=== PATIENT | female | born 1930 | race Caucasian/White ===

== ENCOUNTER → 2017-05-25 | Outpatient (CLI) | payer MEDICARE ==
[2017-05-25 09:34] LABS: MEAN CORPUSCULAR HEMOGLOBIN 32.6 pg (27.0-33.0); MEAN CORPUSCULAR HGB CONC 32.4 g/dl (32.0-36.5); MEAN CORPUSCULAR VOLUME 100.5 fl (80.0-96.0); PLATELET COUNT, AUTOMATED 460 10^3/uL (150-450); RED CELL DISTRIBUTION WIDTH 13.2 % (11.5-14.5)
--- NOTE | 2017-05-25 09:59 | REP ---
CHEST, TWO VIEWS: Two views of the chest are performed. Comparison 03/12/2009. There is hyperinflation and underlying scattered interstitial fibrotic change. There is superimposed infiltrate in the left lung base with a small left pleural effusion. There is mild infiltrate in the right lung base. The heart is not enlarged. There is calcification of the thoracic aorta. The mediastinal silhouette is otherwise unremarkable. There are degenerative changes of the spine. IMPRESSION: Patchy infiltrate left lung base with adjacent left pleural effusion. Mild infiltrate right lung base. Signed by Silverio Hartley MD 05/25/2017 05:22 P
[2017-05-25 10:04] LABS: ALBUMIN/GLOBULIN RATIO 0.86 (1.00-1.93); ALKALINE PHOSPHATASE 126 U/L (45-117); ALT/SGPT 17 U/L (12-78); ANION GAP 6 MEQ/L (8-16); AST/SGOT 26 U/L (7-37); BILIRUBIN,TOTAL 0.5 MG/DL (0.2-1.0); BLOOD UREA NITROGEN 18 MG/DL (7-18); CALCIUM LEVEL 10.5 MG/DL (8.8-10.2); CARBON DIOXIDE LEVEL 36 MEQ/L (21-32); CHLORIDE LEVEL 97 MEQ/L (98-107); CREATININE FOR GFR 0.84 MG/DL (0.55-1.02); GLOMERULAR FILTRATION RATE > 60.0 (>32); GLUCOSE, FASTING 106 MG/DL (83-110); POTASSIUM SERUM 4.9 MEQ/L (3.5-5.1); SODIUM LEVEL 139 MEQ/L (136-145); TOTAL PROTEIN 6.5 GM/DL (6.4-8.2)
== END ==
LOC: M LAB 09:00
PROVIDERS: ATTEND Family Medicine
DX: D64.9 Anemia, unspecified (principal); R53.83 Other fatigue

== ENCOUNTER → 2017-06-10 | Outpatient (CLI) | payer MEDICARE | LOC: M RAD 09:33 | DX: J18.9 Pneumonia, unspecified organism (principal) | CPT/HCPCS: 71046 ==

== ENCOUNTER → 2018-03-07 | Outpatient (REF) | payer MEDICARE ==
[2018-03-07 13:33] LABS: THYROID STIMULATING HORMONE 0.463 uIU/ML (0.358-3.740)
[2018-03-07 13:33] LABS: THYROXINE (T4) 9.3 UG/DL (4.5-12.0)
== END ==
LOC: M LABDRAW1 12:29
DX: E03.9 Hypothyroidism, unspecified (principal)
CPT/HCPCS: 84443

== ENCOUNTER → 2018-09-08 | Outpatient (REF) | payer MEDICARE | LOC: M LAB LCGH 10:31 | PROVIDERS: ATTEND Physician Assistant | DX: C44.722 Squamous cell carcinoma of skin of right lower limb, including hip (principal) ==

== ENCOUNTER 2019-02-05 11:19 | Observation (INO) | payer MEDICARE ==
[~2019-02-05] VITALS: Ht 160 cm; Wt 36.3 kg
[2019-02-05] MEDS ORDERED: LIDOCAINE 2% 5ML JELLY UROJET TOP ONE (11:30)
[2019-02-05] MEDS ORDERED: NS 500 ML IV ONE (11:30)
--- NOTE | 2019-02-05 11:54 | REP ---
Clinical: Altered mental status. Comparison: 06/10/2017. Findings: Mediastinum, cardiac silhouette, and lung miller demonstrate chronic stable changes. Subtle superimposed process cannot definitively be excluded. No definite effusion. No pneumothorax. Skeletal structures demonstrate osteopenia and degenerative change. Impression: Chronic stable changes. Cannot exclude subtle superimposed acute process. Electronically Signed by Gavin Boland MD 02/05/2019 11:45 A
[2019-02-05] MEDS ORDERED: IPRATROPIUM 0.5MG/ALBUTEROL 2.5MG INH SOL UD 3ML (DUONEB)(J7620) NEB ONE (12:00)
[2019-02-05] MEDS ORDERED: methylPREDNISolone INJ 125 MG/2 ML VIAL (J2930) IV ONE (12:00)
[2019-02-05] MEDS ORDERED: ALBUTEROL SULFATE 2.5 MG/0.5 ML INH NEB SOLN INH ONE (12:00)
[2019-02-05] MEDS ORDERED: NS 1,000 ML IV ONE ×2 (12:15→12:45)
[2019-02-05] MEDS ORDERED: LevoFLOXacin IV 750 MG in IV 1 EA IV ONE (12:15)
--- NOTE | 2019-02-05 12:17 | REP ---
Clinical: Altered mental status. Comparison: 11/01/2014. Findings: Age-related atrophy and microvascular ischemic changes are appreciated. The ventricles and sulci are symmetric. Hartley-white differentiation is maintained. There is no evidence for acute intracranial hemorrhage, mass/mass effect, pathology or infarction. No extra-axial fluid collection. Calvarium is intact. Paranasal sinuses and mastoid air cells are clear. Impression: Age related atrophy and microvascular ischemic changes. No acute intracranial hemorrhage, infarction, or mass/mass effect. Electronically Signed by Gavin Boland MD 02/05/2019 12:09 P
[2019-02-05 12:36] LABS: BASO # 0.1 10^3/uL (0.0-0.2); BASO % 0.4 % (0.0-1.0); HEMATOCRIT 42.1 % (36.0-47.0); HEMOGLOBIN 13.1 g/dl (12.0-15.5); LYMPH # 0.6 10^3/uL (1.5-5.0); LYMPH % 4.9 % (24.0-44.0); MEAN CORPUSCULAR HEMOGLOBIN 33.2 pg (27.0-33.0); MEAN CORPUSCULAR HGB CONC 31.1 g/dl (32.0-36.5); MEAN CORPUSCULAR VOLUME 106.9 fl (80.0-96.0); MONO # 0.9 10^3/uL (0.0-0.8); MONO % 7.6 % (0.0-5.0); NEUTROPHILS # 9.8 10^3/uL (1.5-8.5); NEUTROPHILS % 86.3 % (36.0-66.0); PLATELET COUNT, AUTOMATED 322 10^3/uL (150-450); RED BLOOD COUNT 3.94 10^6/uL (4.00-5.40); WHITE BLOOD COUNT 11.3 10^3/uL (4.0-10.0)
[2019-02-05 13:09] LABS: ACETAMINOPHEN LEVEL < 2.0 UG/ML (10.0-30.0); ALBUMIN 3.1 GM/DL (3.2-5.2); ALT/SGPT 37 U/L (12-78); BILIRUBIN,DIRECT 0.5 MG/DL (0.0-0.2); BILIRUBIN,TOTAL 1.1 MG/DL (0.2-1.0); BLOOD UREA NITROGEN 31 MG/DL (7-18); CARBON DIOXIDE LEVEL 34 MEQ/L (21-32); CHLORIDE LEVEL 97 MEQ/L (98-107); CK-MB VALUE MASS 2.8 NG/ML (<3.6); CPK CREATINE PHOSPHOKINASE 72 U/L (26-192); CREATININE FOR GFR 1.21 MG/DL (0.55-1.30); ETHYL ALCOHOL (ETHANOL) < 0.003 % (0.000-0.010); GLOMERULAR FILTRATION RATE 44.7 (>32); GLUCOSE, FASTING 133 MG/DL (70-100); MB/CK RELATIVE INDEX 3.89 (< OR =4); POTASSIUM SERUM 5.8 MEQ/L (3.5-5.1); SALICYLATE LEVEL 2.4 MG/DL (5.0-30.0); SODIUM LEVEL 138 MEQ/L (136-145); TOTAL PROTEIN 6.7 GM/DL (6.4-8.2)
[2019-02-05] MEDS ORDERED: VANCOMYCIN HCL 1,000 MG, VIAL MATE ADAPTER 1 EACH in D5W 250 ML IV SCH (14:15)
[2019-02-05] MEDS ORDERED: IPRATROPIUM 0.5MG/ALBUTEROL 2.5MG INH SOL UD 3ML (DUONEB)(J7620) INH PRN (14:15)
[2019-02-05] MEDS ORDERED: ALBUTEROL SULFATE 2.5 MG/0.5 ML INH NEB SOLN INH PRN (14:15)
--- NOTE | 2019-02-05 14:32 | ECGEPIP ---
[facility] - ED Test Date: 2019-02-05 Pat Name: ZACKARY GILBERT Department: Room: - Gender: Female [employer] Cleaning Hand: MARCOS : 1930 Requested By: Rima Gates Order Number: [id number] Reading MD: Rima Gates Measurements Intervals [place] Rate: 125 P: CO: 0 QRS: -79 QRSD: 129 T: 75 QT: 301 QTc: 435 Interpretive Statements ATRIAL FLUTTER/TACHYCARDIA WITH RAPID VENTRICULAR RESPONSE RIGHT BUNDLE BRANCH BLOCK LEFT ANTERIOR FASCICULAR BLOCK LAD NONSPECIFIC ST T WAVE CHANGES CW 11/01/14 RATE INCREASED RHYTHM CHANGE NONSPECIFIC ST T WAVE CHANGES Electronically Signed on 02-05-2019 14:32:20 EDT by Rima Gates
[2019-02-05 14:37] LABS: AMPHETAMINES LEVEL URINE NEGATIVE (NEGATIVE); BARBITURATES URINE NEGATIVE (NEGATIVE); BENZODIAZEPINES URINE NEGATIVE (NEGATIVE); CANNABINOIDS URINE NEGATIVE (NEGATIVE); COCAINE METABOLITE URINE NEGATIVE (NEGATIVE); METHADONE URINE NEGATIVE (NEGATIVE); OPIATES URINE NEGATIVE (NEGATIVE); PHENCYCLIDINE URINE NEGATIVE (NEGATIVE)
--- NOTE | 2019-02-05 14:47 | HPEPDOC ---
General Date of Admission 02/05/19 Date of Service: Feb 05, 2019 Attending Physician: LUPE MARTINEZ DO Chief Complaint The patient is a 88-year-old female admitted with a reason for visit of ams. Source: Family Exam Limitations: Clinical conditions Timing/Duration: 24 hours Severity: Severe Associated Symptoms: Malaise, Shortness of breath, Weakness History of Present Illness Patient is 88 years old female with past medical history of colon cancer status post resection, COPD was active smoker, macrocytic anemia presented to the hospital with acute hypoxemic hypercapnic respiratory failure. According to the family who physically present in the room, for past month patient became progressively weak, lost appetite, shortness of breath gradually became worse as well. Today in the morning patient developed severe shortness of breath associated with altered mental status. Of note, the daughter stated that patient had problem with swallowing before. In Emergency room patient was found to have severe respiratory distress, arterial blood gas showed pH of 7.1, CO2 level 115.9. Patient was placed on nonrebreather mask. Family didn't want BiPAP or any interventional aggressive procedure. The CODE STATUS has been changed for DNR/DNI. Chest x-ray cannot exclude subtle superimposed acute process. White blood count of 11.3, lactic acid of 2.8. Home Medications No Active Prescriptions or Reported Meds Allergies Coded Allergies: Penicillins (Verified Allergy, Intermediate, 02/05/19) rash Sulfa (Sulfonamide Antibiotics) (Verified Allergy, Intermediate, 02/05/19) rash erythromycin base (Verified Allergy, Intermediate, 02/05/19) rash Past Medical History Medical History Colon cancer, COPD, nicotine abuse Surgical History Colon resection secondary to colon cancer Family History Father from colon cancer Social History * Smoker: current smoker Alcohol: occationally Drugs: denies Psychosocial History: No pertinent psych hx A-FIB/CHADSVASC A-FIB History Current/History of A-Fib/PAF?: No Current PO Anticoag Therapy: No Review of Systems Constitutional: Reports: Chills, Fatigue, Weight Loss, Lethargy Eyes: Denies: Pain, Vision change ENT: Denies: Head Aches, Ear Pain Skin: Denies: Rash, Lesions Pulmonary: Reports: Dyspnea, Cough Cardiovascular: Denies: Chest Pain, Palpitations, Orthopnea Gastrointestinal: Denies: Nausea, Vomiting, Abdominal Pain Genitourinary: Denies: Dysuria, Frequency Hematologic: Denies: Bruising, Bleeding Excessively Endocrine: Denies: Polydipsia Musculoskeletal: Denies: Neck Pain, Back Pain Neurological: Denies: Weakness, Numbness Physical Examination General Exam: Positive: Severe Distress Eye Exam: Positive: PERRLA, EOMI ENT Exam: Positive: Atraumatic Neck Exam: Positive: Supple; Negative: JVD, thyromegaly Chest Exam: Positive: Rhonchi, Diminished Heart Exam: Positive: Tachycardic Telemetry: Positive: Tachycardia Abdomen Exam: Positive: BS Hypoactive Extremity Exam: Negative: Clubbing, Cyanosis Skin Exam: Negative: Rash Neuro Exam: Positive: Other (unable to perform neurological exam due to severe respiratory distress) Vital Signs Vital Signs Date Time Temp Pulse Resp B/P (MAP) Pulse Ox O2 Delivery O2 Flow Rate FiO2 02/05/19 13:43 NIPPV (BIPAP/CPAP) 02/05/19 13:34 118 16 86 02/05/19 13:30 195/93 (127) 02/05/19 12:49 15.0 02/05/19 12:05 70 02/05/19 11:32 99.8 Laboratory Data Labs 24H Laboratory Tests 2 02/05/19 11:40: POC pH (Misc Panel) 7.138*L, POC Base Excess (Misc Panel) 10.0H, POC Saturated Percent O2 (Misc) 100H, POC pO2 (Misc Panel) 337.0H, POC pCO2 (Misc Panel) 115.9*H, POC HCO3 (Misc Panel) 39.3H, POC Total CO2 (Misc Panel) 43.0H 02/05/19 12:11: POC Total CO2 (Misc Panel) 39.0H, POC Glucose (Misc Panel) 136H, POC Sodium (Misc Panel) 135L, POC Potassium (Misc Panel) 5.5H, POC Chloride (Misc Panel) 96L, POC Blood Urea Nitrogen (Misc Panel 42H, POC Ionized Calcium (Misc Panel) 5.1, POC Creatinine (Misc Panel) 1.2, POC Hematocrit (Misc Panel) 43.0, Lactic Acid Level 2.8*H 02/05/19 12:13: Immature Granulocyte % (Auto) 0.8, White Blood Count 11.3H, Red Blood Count 3.94L, Hemoglobin 13.1, Hematocrit 42.1, Mean Corpuscular Volume 106.9H, Mean Corpuscular Hemoglobin 33.2H, Mean Corpuscular Hemoglobin Concent 31.1L, Red Cell Distribution Width 14.0, Platelet Count 322, Neutrophils (%) (Auto) 86.3H, Lymphocytes (%) (Auto) 4.9L, Monocytes (%) (Auto) 7.6H, Eosinophils (%) (Auto) 0.0, Basophils (%) (Auto) 0.4, Neutrophils # (Auto) 9.8H, Lymphocytes # (Auto) 0.6L, Monocytes # (Auto) 0.9H, Eosinophils # (Auto) 0.0, Basophils # (Auto) 0.1, Nucleated Red Blood Cells % (auto) 0.0, Anion Gap 7L, Glomerular Filtration Rate 44.7, Calcium Level 10.0, Aspartate Amino Transf (AST/SGOT) 91H, Alanine Aminotransferase (ALT/SGPT) 37, Alkaline Phosphatase 167H, Total Bilirubin 1.1H, Direct Bilirubin 0.5H, Ammonia 18, Total Creatine Kinase 72, Creatine Kinase MB 2.8, Creatine Kinase MB Relative Index 3.89, Troponin I 0.10, Total Protein 6.7, Albumin 3.1L, Albumin/Globulin Ratio 0.86L, Thyroid Stimulating Hormone (TSH) 6.250H, Salicylates Level 2.4L, Acetaminophen Level < 2.0L, Ethyl Alcohol Level < 0.003 02/05/19 13:08: POC pH (Misc Panel) 7.057*L, POC Base Excess (Misc Panel) 6.0H, POC Saturated Percent O2 (Misc) 100H, POC pO2 (Misc Panel) 298.0H, POC pCO2 (Misc Panel) 127.9*H, POC HCO3 (Misc Panel) 35.9H, POC Total CO2 (Misc Panel) 40.0H 02/05/19 13:35: POC Glucose (Misc Panel) 160H, POC Sodium (Misc Panel) 137, POC Potassium (Misc Panel) 5.0, POC Chloride (Misc Panel) 99, POC Total CO2 (Misc Panel) 35.0H, POC Blood Urea Nitrogen (Misc Panel 32H, POC Ionized Calcium (Misc Panel) 5.1, POC Creatinine (Misc Panel) 1.2, POC Hematocrit (Misc Panel) 40.0 02/05/19 14:01: CBC/BMP Laboratory Tests 02/05/19 12:13 Red Blood Count 3.94 L, Mean Corpuscular Volume 106.9 H, Mean Corpuscular Hemoglobin 33.2 H, Mean Corpuscular Hemoglobin Concent 31.1 L, Red Cell Distribution Width 14.0, Neutrophils (%) (Auto) 86.3 H, Lymphocytes (%) (Auto) 4.9 L, Monocytes (%) (Auto) 7.6 H, Eosinophils (%) (Auto) 0.0, Basophils (%) (Auto) 0.4, Neutrophils # (Auto) 9.8 H, Lymphocytes # (Auto) 0.6 L, Monocytes # (Auto) 0.9 H, Eosinophils # (Auto) 0.0, Basophils # (Auto) 0.1 Microbiology Microbiology 02/05/19 Blood Culture, Received Pending 02/05/19 Blood Culture, Received Pending Assessment/Plan Patient is 88 years old female with past medical history of colon cancer status post resection, COPD was active smoker, macrocytic anemia presented to the hospital with acute hypoxemic hypercapnic respiratory failure. In Emergency room patient was found to have severe respiratory distress, arterial blood gas showed pH of 7.1, CO2 level 115.9. Patient was placed on nonrebreather mask. Family didn't want BiPAP or any interventional aggressive procedure. The CODE STATUS has been changed for DNR/DNI. Chest x-ray cannot exclude subtle superimposed acute process. White blood count of 11.3, lactic acid of 2.8. Problems (1) Respiratory failure with hypoxia and hypercapnia Status: Acute Problem Text: Patient developed acute hypoxemic hypercapnic respiratory failure Most likely secondary to aspiration pneumonia Vancomycin IV, cefepime IV Blood culture, sputum culture, respiratory viral panel Urine Legionella/Strep Gentle IV fluid Aspiration precaution Speech evaluation Nothing by mouth for now Continue oxygen therapy, prognosis guarded IV steroid (2) Altered mental status Status: Acute Problem Text: Secondary to hypercapnia and respiratory distress See above Plan / VTE VTE Prophylaxis Ordered?: Yes LUPE MARTINEZ DO Feb 05, 2019 14:47
[2019-02-05] MEDS ORDERED: VANCOMYCIN HCL 750 MG, VIAL MATE ADAPTER 1 EACH in D5W 250 ML IV ONE (15:00)
[2019-02-05] MEDS ORDERED: NS 1,000 ML IV SCH (15:00)
[2019-02-05] MEDS ORDERED: MORPHINE 4 MG/ML 1ML VIAL/SYRINGE (J2270) IV PRN (15:00)
[2019-02-05] MEDS ORDERED: HYOSCYAMINE SULFATE 0.125 MG SUBL TABLET PO PRN (15:45)
[2019-02-05] MEDS ORDERED: MORPHINE 10MG/0.5ML ORAL CONCENTRATE SOLUTION U/D SL PRN (15:45)
[2019-02-05] MEDS ORDERED: ATROPINE SULFATE 1% OP SOLN 2 ML BTL SL PRN (15:45)
[2019-02-05] MEDS ORDERED: ONDANSETRON 4MG/2ML VIAL (J2405) IV PRN (15:45)
[2019-02-05] MEDS ORDERED: LORazepam 2 MG/ML VIAL (J2060) IV PRN (15:45)
[2019-02-05] MEDS ORDERED: SCOPOLAMINE 1MG TRANSDERMAL PATCH TOP PRN (15:45)
[2019-02-05] MEDS ORDERED: CEFEPIME HCL 1 GM in D5W MINI-BAG PLUS 50 ML IV SCH (16:00)
[2019-02-05] MEDS ORDERED: MORPHINE SULF IN 0.9% NACL 100 MG in IV 1 EA IV SCH ×2 (17:00)
[2019-02-05 17:15] VITALS: BP 134/64
[2019-02-05] MEDS ORDERED: methylPREDNISolone INJ 125 MG/2 ML VIAL (J2930) IV SCH (20:00)
[2019-02-05] MEDS ORDERED: HEPARIN SOD (PORCINE) 5000 UNITS/ML VIAL SC SCH (21:00)
--- NOTE | 2019-02-06 08:25 | DS.PDOC ---
Discharge Summary General Date of Admission Feb 05, 2019 at 14:06 Date of Discharge 02/05/2019 Attending Physician: LUPE MARTINEZ DO Discharge Summary PROCEDURES PERFORMED DURING STAY: [place] [address] ADMITTING DIAGNOSES: 1. Altered mental status. Respiratory failure hypoxia DISCHARGE DIAGNOSES: 1. Cardiac arrest. 2. Respiratory failure COMPLICATIONS/CHIEF COMPLAINT: Altered Mental Status Respiratory Failure Hypoxia. HISTORY OF PRESENT ILLNESS: 88 year elderly female who presented with altered mental status secondary to acute respiratory failure with hypoxia. She has significant medical history of colon cancer status post resection, COPD was active smoker, macrocytic anemia presented to the hospital with acute hypoxemic hypercapnic respiratory failure. HOSPITAL COURSE: 5 hours. Consultations: None. Operations: None. Complications arising out of management: None DISCHARGE MEDICATIONS: Please see below. ALLERGIES: Please see below. Penicillin. Sulfa (sulfonamide antibiotics). Erythromycin base. PHYSICAL EXAMINATION ON DISCHARGE: Pupillary light reflex, absent in the colon. Pupils fixed and dilated. Corneal reflex absent. Doll's eyes absent. Gag reflex absent. Heart sounds not present, verified by AUSCULTATION. Heart is not moving by palpation. No movement and are rise in chest. Carotid pulses and femoral pulses absent. Discharge note LABORATORY DATA: Please see below. PROGNOSIS: ACTIVITY: None applicable DIET: None Applicable DISCHARGE PLAN: Release to [facility] DISPOSITION: home of family's choosing. ITEMS TO FOLLOWUP ON ON OUTPATIENT: 1. None applicable DISCHARGE CONDITION: TIME SPENT ON DISCHARGE: 20 minutes Vital Signs/I&Os Vital Signs Date Time Temp Pulse Resp B/P (MAP) Pulse Ox O2 Delivery O2 Flow Rate FiO2 02/05/19 17:19 101 17 100 Venturi Mask 15.0 50 02/05/19 17:15 134/64 (87) 02/05/19 17:09 99.8 Laboratory Data Labs 24H Laboratory Tests 2 02/05/19 11:40: POC pH (Misc Panel) 7.138*L, POC Base Excess (Misc Panel) 10.0H, POC Saturated Percent O2 (Misc) 100H, POC pO2 (Misc Panel) 337.0H, POC pCO2 (Misc Panel) 115.9*H, POC HCO3 (Misc Panel) 39.3H, POC Total CO2 (Misc Panel) 43.0H 02/05/19 12:11: POC Total CO2 (Misc Panel) 39.0H, POC Glucose (Misc Panel) 136H, POC Sodium (Misc Panel) 135L, POC Potassium (Misc Panel) 5.5H, POC Chloride (Misc Panel) 96L, POC Blood Urea Nitrogen (Misc Panel 42H, POC Ionized Calcium (Misc Panel) 5.1, POC Creatinine (Misc Panel) 1.2, POC Hematocrit (Misc Panel) 43.0, Lactic Acid Level 2.8*H 02/05/19 12:13: Immature Granulocyte % (Auto) 0.8, White Blood Count 11.3H, Red Blood Count 3.94L, Hemoglobin 13.1, Hematocrit 42.1, Mean Corpuscular Volume 106.9H, Mean Corpuscular Hemoglobin 33.2H, Mean Corpuscular Hemoglobin Concent 31.1L, Red Cell Distribution Width 14.0, Platelet Count 322, Neutrophils (%) (Auto) 86.3H, Lymphocytes (%) (Auto) 4.9L, Monocytes (%) (Auto) 7.6H, Eosinophils (%) (Auto) 0.0, Basophils (%) (Auto) 0.4, Neutrophils # (Auto) 9.8H, Lymphocytes # (Auto) 0.6L, Monocytes # (Auto) 0.9H, Eosinophils # (Auto) 0.0, Basophils # (Auto) 0.1, Nucleated Red Blood Cells % (auto) 0.0, Anion Gap 7L, Glomerular Filtration Rate 44.7, Calcium Level 10.0, Aspartate Amino Transf (AST/SGOT) 91H, Alanine Aminotransferase (ALT/SGPT) 37, Alkaline Phosphatase 167H, Total Bilirubin 1.1H, Direct Bilirubin 0.5H, Ammonia 18, Total Creatine Kinase 72, Creatine Kinase MB 2.8, Creatine Kinase MB Relative Index 3.89, Troponin I 0.10, Total Protein 6.7, Albumin 3.1L, Albumin/Globulin Ratio 0.86L, Thyroid Stimulating Hormone (TSH) 6.250H, Salicylates Level 2.4L, Acetaminophen Level < 2.0L, Ethyl Alcohol Level < 0.003 02/05/19 13:08: POC pH (Misc Panel) 7.057*L, POC Base Excess (Misc Panel) 6.0H, POC Saturated Percent O2 (Misc) 100H, POC pO2 (Misc Panel) 298.0H, POC pCO2 (Misc Panel) 127.9*H, POC HCO3 (Misc Panel) 35.9H, POC Total CO2 (Misc Panel) 40.0H 02/05/19 13:35: POC Glucose (Misc Panel) 160H, POC Sodium (Misc Panel) 137, POC Potassium (Misc Panel) 5.0, POC Chloride (Misc Panel) 99, POC Total CO2 (Misc Panel) 35.0H, POC Blood Urea Nitrogen (Misc Panel 32H, POC Ionized Calcium (Misc Panel) 5.1, POC Creatinine (Misc Panel) 1.2, POC Hematocrit (Misc Panel) 40.0 02/05/19 14:01: Urine Color YELLOW, Urine Appearance HAZY, Urine pH 5.0, Urine Specific Bryan 1.016, Urine Protein 2+H, Urine Glucose (UA) NEGATIVE, Urine Ketones NEGATIVE, Urine Blood 3+H, Urine Nitrite NEGATIVE, Urine Bilirubin NEGATIVE, Urine Urobilinogen 4.0H, Urine Leukocyte Esterase TRACEH, Urine WBC (Auto) 15H, Urine RBC (Auto) 81H, Urine Hyaline Casts (Auto) 0, Urine Bacteria (Auto) 1+H, Urine Squamous Epithelial Cells 1, Urine Sperm (Auto) , Urine Amphetamines Screen NEGATIVE, Urine Benzodiazepines Screen NEGATIVE, Urine Opiates Screen NEGATIVE, Urine Methadone Screen NEGATIVE, Urine Barbiturates Screen NEGATIVE, Urine Phencyclidine Screen NEGATIVE, Urine Cocaine Metabolite Screen NEGATIVE, Urine Cannabinoids Screen NEGATIVE 02/05/19 16:41: Lactic Acid Followup at 4 Hours 1.2 CBC/BMP Laboratory Tests 02/05/19 12:13 Red Blood Count 3.94 L, Mean Corpuscular Volume 106.9 H, Mean Corpuscular Hemo globin 33.2 H, Mean Corpuscular Hemoglobin Concent 31.1 L, Red Cell Distribution Width 14.0, Neutrophils (%) (Auto) 86.3 H, Lymphocytes (%) (Auto) 4.9 L, Monocytes (%) (Auto) 7.6 H, Eosinophils (%) (Auto) 0.0, Basophils (%) (Auto) 0.4, Neutrophils # (Auto) 9.8 H, Lymphocytes # (Auto) 0.6 L, Monocytes # (Auto) 0.9 H, Eosinophils # (Auto) 0.0, Basophils # (Auto) 0.1 Microbiology Microbiology 02/05/19 Blood Culture, Received Pending 02/05/19 Blood Culture, Received Pending 02/05/19 Urine Culture, Received Pending Discharge Medications No Active Prescriptions or Reported Meds Allergies Coded Allergies: Penicillins (Verified Allergy, Intermediate, 02/05/19) rash Sulfa (Sulfonamide Antibiotics) (Verified Allergy, Intermediate, 02/05/19) rash erythromycin base (Verified Allergy, Intermediate, 02/05/19) rash JASMIN TONY [facility] Feb 05, 2019 23:39 LUPE MARTINEZ DO Feb 23, 2019 10:35
== END 2019-02-05 19:34 | disposition expired ==
LOC: M ED 11:19 → EDBD 11:19 → M ED INP 14:06 → INTOOBSV 14:06 → M MSPAV 17:30
PROVIDERS: ADMIT Internal Medicine; ATTEND Internal Medicine
DX: I46.9 Cardiac arrest, cause unspecified (principal); J96.01 Acute respiratory failure with hypoxia; J96.02 Acute respiratory failure with hypercapnia; F17.210 Nicotine dependence, cigarettes, uncomplicated; D64.9 Anemia, unspecified; Z85.038 Personal history of other malignant neoplasm of large intestine; Z88.2 Allergy status to sulfonamides; Z88.0 Allergy status to penicillin
CPT/HCPCS: 36415; 36600; 51701; 70450; 71045; 80047; 80048; 80076; 80307; 82140; 82550; 82553; 82803; 83605; 84443; 84484; 85025; 87040; 87088; 93005; 93041; 94640; 94660; 96361; 96365; 96366; 96375; 99291; G0378; G0480; J1956; J2270; J2930